=== PATIENT | male | born 1980 | race American Indian/Alaskan Native ===

== ENCOUNTER 2020-10-21 17:47 | Emergency (ER) | payer OTHER ==
--- OUTSIDE RECORDS SUMMARY | 2020-10-21 17:53 | XMS REPORT | Continuity of Care Document ---
:1980 Author Organization [facility] t Address [address] [place] [address] Care Team Providers Name Role Phone Ricardo Valdez Attending Clinician [phone] Problems This patient has no known problems. Allergies, Adverse Reactions, Alerts This patient has no known allergies or adverse reactions. Medications Ordered Filled Start Stop Current Ordering Indication Dosage Frequency Signature Comments Components Source Medication Medication Date Date Medication? Clinician (SIG) Name Name Simvastatin Simvastatin Yes Jazmin Knutson 1 tablet [facility] evening Immunizations Ordered Immunization Filled Immunization Date Status Commen ts Source Name Name HEP B - ADULT HEP B - ADULT 2019-10-15 Completed [facility] 00:00:00 HEP B - ADULT HEP B - ADULT 2019-06-11 Completed [facility] 00:00:00 Flulaval 0.5 ml 3 Flulaval 0.5 ml 3 2019-03-28 Completed [facility] YEARS AND OLDER YEARS AND OLDER 00:00:00 Procedures This patient has no known procedures. Encounters Start End Encounter Admission Attending Care Care Encounter Source Date/Time Date/Time Type Type Clinicians Facility Department ID 2020-08-17 2020-08-17 Outpatient Ricardo Valdez PRIV PRIV [id number] 00:00:00 00:00:00 [id number] 2020-08-10 2020-08-10 Outpatient Ricardo Valdez PRIV PRIV [id number] 00:00:00 00:00:00 [id number] 2020-04-03 2020-04-03 [facility] [id number] [facility]00 [facility] 2019-10-21 2019-10-21 [facility](Mar[facility]( [id number] [facility] 10:[facility] 10[facility] 2019-10-15 2019-10-15 [facility]( [id number] [facility] 10:30:00 10:30:00 [facility] 2019-06-11 2019-06-11 [facility]( [id number] [facility] 09:30:00 09:30:00 [facility] ) 2019-05-07 2019-05-07 [facility]( [id number] [facility] 15:30:00 15:30:00 [facility] ) 2019-04-26 2019-04-26 [facility]( [id number] [facility] 15:52:00 15:52:00 [facility] ) 2019-04-01 2019-04-01 [facility](Mar[facility]( [id number] [facility] 21:10:00 21:10:00 [facility] ) 2019-03-28 2019-03-28 [facility](Mar[facility]( [id number] [facility] 11:30:00 11:30:00 [facility] ) Results This patient has no known results.
--- NOTE | 2020-10-21 20:16 | RAD REPORT ---
EXAM DESCRIPTION: RAD - Hand Right 3 View - 10/21/2020 8:00 pm CLINICAL HISTORY: Right hand pain status post injury FINDINGS: No fracture or dislocation is seen. A staple abuts the second proximal phalanx.
[2020-10-21] MEDS ORDERED: LIDOCAINE 1% MPF 5 ML VIAL ONE (20:52)
[2020-10-21] MEDS ORDERED: TETANUS & DIPHTHERIA TOX,ADULT 0.5 ML VIAL ONE (20:53)
--- NOTE | 2020-10-21 21:06 | ER ---
Nurse's Notes [facility] Name: Farrukh Silva Age: 40 yrs Sex: Male : 1980 Arrival Date: 10/21/2020 Time: 17:52 Bed 7 Private MD: Diagnosis: Puncture wound with foreign body of right hand-right index finger Presentation: 10/21 18:10 Chief complaint: Patient states: Fish hook into R hand 2nd digit 1 hour [employer]. ll1 Coronavirus screen: Client denies travel out of the [place] in the last 14 days. At this time, the client does not indicate any symptoms associated with coronavirus-19. Ebola Screen: Patient denies travel to an Ebola-affected area in the 21 days before illness onset. Initial Sepsis Screen: Does the patient meet any 2 criteria? No. Patient's initial sepsis screen is negative. Does the patient have a suspected source of infection? Yes: Skin breakdown/wound. Risk Assessment: Do you want to hurt yourself or someone else? Patient reports no desire to harm self or others. Onset of symptoms was October 21, 2020. 18:10 Method Of Arrival: Ambulatory ll1 18:10 Acuity: SHELLIE 4 ll1 Historical: - Allergies: 18:12 No Known Allergies; ll1 - PMHx: 18:12 None; ll1 - PSHx: 18:12 None; ll1 - Immunization history:: Last tetanus immunization: unknown, Flu vaccine is up to date. - Social history:: Smoking status: Patient reports the use of cigarette tobacco products, denies chronic smoking, but will smoke occasionally. Screenin:35 Abuse screen: Denies threats or abuse. Nutritional screening: No deficits noted. ea Tuberculosis screening: No symptoms or risk factors identified. Fall Risk None identified. Assessment: 20:37 General: Appears in no apparent distress. Behavior is appropriate for age. Pain: ea Complains of pain in right hand. Neuro: Level of Consciousness is awake, alert, obeys commands, Oriented to person, place, time. Respiratory: Airway is patent Respiratory effort is even, unlabored, Respiratory pattern is regular, symmetrical. Derm: Skin is pink, warm \T\ dry. Injury Description: fish hook to right finger. 21:20 Reassessment: Patient and/or family updated on plan of care and expected duration. Pain ea level reassessed. Patient is alert, oriented x 3, equal unlabored respirations, skin warm/dry/pink. Discharge instruction given to patient verbalized the understanding of instruction. Vital Signs: 18:10 BP 130 / 90; Pulse 61; Resp 16; Temp 97.8; Pulse Ox 96% ; Weight 81.65 kg; Pain 2/10; ll1 21:15 BP 127 / 85; Pulse 60; Resp 18; Pulse Ox 98% ; ea ED Course: 17:52 Patient arrived in ED. mr 18:12 Triage completed. ll1 18:13 Arm band placed on. ll1 19:10 [facility]C [facility] kb 19:10 Jarred Haas MD is Attending Physician. kb 19:34 Deana Mack, ROBSON is Primary Nurse. ea 19:36 Patient has correct armband on for positive identification. Bed in low position. Call ea light in reach. 20:00 XRAY Hand RIGHT 3 View In Process Unspecified. EDMS 21:00 Assist provider with foreign body removal of a fish hook from right Set up for ea procedure. Performed by Tracie ZENG Dressed with gauze bandage, Patient tolerated well. 21:20 Patient did not have IV access during this emergency room visit. ea Administered Medications: 20:36 Drug: Tetanus-Diphtheria Toxoid Adult 0.5 ml {County Director: [employer]. Exp: ea 07/02/2022. Lot #: [id number]. } Route: IM; Site: right deltoid; 21:21 Follow up: Response: No adverse reaction ea 21:00 Drug: Lidocaine (1 %) 1 vials {Note: administered by provider .} Volume: 5 ml; Route: ea Infiltration; Outcome: 21:05 Discharge ordered by . kb 21:20 Discharged to home ambulatory. ea 21:20 Condition: stable 21:20 Discharge instructions given to patient, Instructed on discharge instructions, follow up and referral plans. medication usage, Demonstrated understanding of instructions, follow-up care, medications, Prescriptions given X 1. 21:21 Patient left the ED. ea Signatures: Dispatcher [employer] EDMS Tracie Banks FNP-C FNP-Ckb Kori Mattson mr Deana Mack, RN Josselin Estevez ea, RN RN ll1 Corrections: (The following items were deleted from the chart) 18:13 18:12 Social history: Smoking status: Patient denies any tobacco usage or history of. ll1 ll1
--- NOTE | 2020-10-21 21:06 | EDPHYS ---
Physician Documentation [facility] Name: Farrukh Silva Age: 40 yrs Sex: Male : 1980 Arrival Date: 10/21/2020 Time: 17:52 Bed 7 Private MD: ED Physician Jarred Haas HPI: 10/22 00:14 This 40 yrs old Other Male presents to ER via Ambulatory with complaints of Fish Hook kb in finger. 00:14 The patient or guardian reports the patient has a suspected foreign body, right second kb digit. The reported likely foreign body is a fishhook. Onset: The symptoms/episode began/occurred just prior to arrival. Current symptoms: foreign body sensation. Treatment Prior to Arrival: none. The patient has not experienced similar symptoms in the past. The patient has not recently seen a physician. Historical: - Allergies: 10/21 18:12 No Known Allergies; ll1 - PMHx: 18:12 None; ll1 - PSHx: 18:12 None; ll1 - Immunization history:: Last tetanus immunization: unknown, Flu vaccine is up to date. - Social history:: Smoking status: Patient reports the use of cigarette tobacco products, denies chronic smoking, but will smoke occasionally. ROS: 10/22 00:13 Constitutional: Negative for fever, chills, and weight loss, MS/Extremity: Negative for kb injury and deformity, Neuro: Negative for headache, weakness, numbness, tingling, and seizure. Skin: Positive for puncture, of the dorsal aspect of proximal phalanx of right index finger, fb. Exam: 00:13 Constitutional: This is a well developed, well nourished patient who is awake, alert, kb and in no acute distress. Head/Face: Normocephalic, atraumatic. ENT: Moist Mucous membranes Respiratory: Respirations even and unlabored. No increased work of breathing, no retractions or nasal flaring. MS/ Extremity: Pulses equal, no cyanosis. Neurovascular intact. Full, normal range of motion. Neuro: Awake and alert, GCS 15, oriented to person, place, time, and situation. Moves all extremities. Normal gait. Psych: Awake, alert, with orientation to person, place and time. Behavior, mood, and affect are within normal limits. 00:13 Skin: injury, puncture(s), that are deep, of the dorsal aspect of proximal phalanx of right index finger, with fishhook. Vital Signs: 10/21 18:10 BP 130 / 90; Pulse 61; Resp 16; Temp 97.8; Pulse Ox 96% ; Weight 81.65 kg; Pain 2/10; ll1 21:15 BP 127 / 85; Pulse 60; Resp 18; Pulse Ox 98% ; ea Procedures: 21:03 Foreign Body Removal: a fishhook, from the dorsal aspect of proximal phalanx of right kb index finger, by incising to remove, using lidocaine 1% without epinephrine to anesthesize the area, Dressinx4s were used to dress the wound, The patient tolerated the removal well. MDM: 19:37 Patient medically screened. kb 21:04 Data reviewed: vital signs, nurses notes. Data interpreted: Pulse oximetry: on room air kb is 96 %. Interpretation: normal. Counseling: I had a detailed discussion with the patient and/or guardian regarding: the historical points, exam findings, and any diagnostic results supporting the discharge/admit diagnosis, radiology results, the need for outpatient follow up, a family practitioner, to return to the emergency department if symptoms worsen or persist or if there are any questions or concerns that arise at home. 10/21 19:36 Order name: XRAY Hand RIGHT 3 View; Complete Time: 20:21 ea Administered Medications: 20:36 Drug: Tetanus-Diphtheria Toxoid Adult 0.5 ml {Data Reduction Technician: [employer]. Exp: ea 07/02/2022. Lot #: [id number]. } Route: IM; Site: right deltoid; 21:21 Follow up: Response: No adverse reaction ea 21:00 Drug: Lidocaine (1 %) 1 vials {Note: administered by provider .} Volume: 5 ml; Route: ea Infiltration; Disposition: 22:09 Co-signature as Attending Physician, Jarred Haas MD I agree with the assessment and kdr plan of care. Disposition Summary: 10/21/20 21:05 Discharge Ordered Location: Home Condition: Stable Diagnosis - Puncture wound with foreign body of right hand - right index finger kb Followup: kb - With: Emergency Department - When: As needed - Reason: Worsening of condition Followup: kb - With: Private Physician - When: 2 - 3 days - Reason: Recheck today's complaints, Continuance of care, Re-evaluation by your physician Discharge Instructions: - Discharge Summary Sheet kb - Puncture Wound, [id number] kb Forms: - Medication Reconciliation Form kb - Thank You Letter kb - Antibiotic Education kb - Prescription Opioid Use kb Prescriptions: - Doxycycline Hyclate 100 mg Oral Tablet - take 1 tablet by ORAL route once daily; 10 tablet; Refills: 0, Product kb Selection Permitted Signatures: Dispatcher [employer] EDVT Tracie Banks, TRIMMER TAILER-C TRIMMER TAILER-Jarred Miranda MD MD kdr Antunez, Elena RN RN Josselin Redding RN RN ll1 Corrections: (The following items were deleted from the chart) 18:13 18:12 Social history: Smoking status: Patient denies any tobacco usage or history of. ll1 ll1
[2020-10-21 21:30] VITALS: TEMP 97.8
[2020-10-21 21:32] VITALS: BP 127/85; O2SAT 98
== END 2020-10-21 21:21 | disposition home or self-care (01) ==
LOC: ER 17:47
PROC: 0JCJ0ZZ Extirpation of Matter from Right Hand Subcutaneous Tissue and Fascia, Open Approach (ICD-10-PCS; principal; 2020-10-21)
DX: S61.240A Puncture wound with foreign body of right index finger without damage to nail, initial encounter (principal); Z23 Encounter for immunization
CPT/HCPCS: 90471; 90714; 99284